=== PATIENT | female | born 1965 | race Caucasian/White ===

== ENCOUNTER 2017-07-23 10:29 | Day surgery (SDC) | payer OTHER ==
[~2017-07-23 10:29] MED LIST: Acetaminophen/HYDROcodone 325-5 MG Tab PO PRN; Clindamycin Phosphate in D5W 900 MG in Premix Bag 1 BAG IV ONE; Lactated Ringers 1,000 ML IV SCH; Lidocaine 1% 20 ML MDV ONE
[2017-07-23] MEDS ORDERED: Lidocaine 2% 5 ML SDV ONE (12:18)
[2017-07-23] MEDS ORDERED: fentaNYL 100 MCG/2 ML SDV ONE ×2 (12:18→12:47)
[2017-07-23] MEDS ORDERED: Propofol 200 MG/20 ML SDV ONE (12:18)
[2017-07-23] MEDS ORDERED: Midazolam 1 MG/ML 2 ML SDV ONE (12:19)
--- NOTE | 2017-07-23 12:52 | PCM.PREANE ---
Preanesthetic Assessment - Procedure Proposed Procedure: Left Knee Arthroscopy with lateral menisectomy - Anesthesia/Transfusion/Family Hx Anesthesia History: Prior Anesthesia Without Reaction Other Type of Anesthesia Reaction Comment: DENIES PROBLEMS WITH ANESTHESIA Family History of Anesthesia Reaction: No Transfusion History: No Prior Transfusion(s) Intubation History: Unknown - Review of Systems General: Other (fibromyalgia with attendant discomforts) Pulmonary: Other (smoker) Cardiovascular: Other (hypercholesterolemic on meds) Gastrointestinal: Other (GERD) Neurological: Difficulty Walking (due to knee injury) Other: Reports: Thyroid Problems (hypothyroid-on meds), Sinus Problem (treated) , Depression (treated with Li and Paxil; none today), Anxiety - Physical Assessment NPO Status Date: 07/22/17 NPO Status Time: 23:00 O2 Sat by Pulse Oximetry: 96 Respiratory Rate: 16 Vital Signs: Last Vital Signs Temp 97.2 F 07/23/17 10:44 Pulse 84 07/23/17 10:44 Resp 16 07/23/17 10:44 BP 135/79 07/23/17 10:44 Pulse Ox 96 07/23/17 10:44 Height: 5 ft 5 in Weight: 218 lb ASA Class: 3 Mental Status: Alert & Oriented x3 Airway Class: Mallampati = 2 Dentition: Reports: Dentures (upper) Thyro-Mental Finger Breadths: 3 (short neck) Mouth Opening Finger Breadths: 3 ROM/Head Extension: Full Lungs: Normal Respiratory Effort, Wheezing (left side; did not clear with cough) Cardiovascular: Regular Rate, Regular Rhythm, No Murmurs - Allergies Allergies/Adverse Reactions: Allergies Allergy/AdvReac Type Severity Reaction Status Date / Time erythromycin base Allergy Unknown Swelling Verified 05/04/14 10:18 [Erythromycin Base] Penicillins Allergy Unknown unknown Verified 03/04/14 12:51 Sulfa (Sulfonamide Allergy Unknown THROAT Verified 05/04/14 10:18 Antibiotics) SWELLS - Blood Blood Available: No Product(s) Available: None - Anesthesia Plan Pre-Op Medication Ordered: None - Acknowledgements Anesthesia Type Planned: General Anesthesia (LMA vs OETT) Pt an Appropriate Candidate for the Planned Anesthesia: Yes Alternatives and Risks of Anesthesia Discussed w Pt/Guardian: Yes Pt/Guardian Understands and Agrees with Anesthesia Plan: Yes PreAnesthesia Questionnaire HEENT History: Reports: Other (See Below) Other HEENT History: wears glasses, top denture Cardiovascular History: Reports: High Cholesterol, Hypertension Respiratory History: Reports: Asthma, Other (See Below) Other Respiratory History: seasonal asthma Gastrointestinal History: Reports: GERD Genitourinary History: Reports: Other (See Below) Other Genitourinary History: polycystic kidneys AUDITOR History: Reports: Musculoskeletal History: Reports: Arthritis, Fibromyalgia Psychiatric History: Reports: Anxiety, Depression Endocrine/Metabolic History: Reports: Hypothyroidism, Obesity/BMI 30+ - Past Surgical History Head Surgeries/Procedures: Reports: None GI Surgical History: Reports: Appendectomy, Cholecystectomy Female Surgical History: Reports: Section, Hysterectomy Other Female Surgeries/Procedures: multiple laparoscopies - SUBSTANCE USE Smoking Status *Q: Current Every Day Smoker Tobacco Use Within Last Twelve Months: Cigarettes Recreational Drug Use History: No - HOME MEDS Home Medications: Home Meds Cholecalciferol (Vitamin D3) [Vitamin D3] 1,000 unit PO DAILY 05/04/14 [History] Levothyroxine 75 mcg PO DAILY 05/04/14 [History] Omeprazole 20 mg PO DAILY 05/04/14 [History] Acetaminophen with Codeine [Acetaminophen-Cod #3] 1 tab PO ASDIRECTED PRN [History] Albuterol [IMW: Albuterol HFA] 2 puff INH ASDIRECTED PRN 07/16/17 [History] Fluticasone Propionate [Flonase Allergy Relief] 1 spray NASBOTH ASDIRECTED 07/16 [History] Lisinopril 5 mg PO DAILY 07/16/17 [History] PARoxetine [Paxil] 20 mg PO DAILY 07/16/17 [History] Pravastatin Sodium [Pravastatin (Pravachol)] 40 mg PO DAILY 07/16/17 [History] buPROPion [Wellbutrin] 100 mg PO DAILY 07/16/17 [History] - CURRENT (IN HOUSE) MEDS Current Meds: Current Medications Hydrocodone Bitart/Acetaminophen ([place] 325-5 Mg) 1 - 2 tab PO Q4H PRN PRN Reason: Pain Lactated Ringer's (Ringers, Lactated) 1,000 mls @ 100 mls/hr IV ASDIRECTED SARAH Last Admin: 07/23/17 11:09 Dose: 100 mls/hr Discontinued Medications Fentanyl (Sublimaze) Confirm Administered Dose 200 mcg .ROUTE .STK-MED ONE Stop: 07/23/17 12:19 Clindamycin Phosphate 900 mg/ (Premix) 50 mls @ 100 mls/hr IV ONETIME ONE Stop: 07/23/17 06:29 Last Admin: 07/23/17 12:39 Dose: 100 mls/hr Lidocaine (Xylocaine-Mpf 2%) Confirm Administered Dose 10 ml .ROUTE .STK-MED ONE Stop: 07/23/17 12:19 Lidocaine HCl (Xylocaine 1%) Confirm Administered Dose 20 ml .ROUTE .STK-MED ONE Stop: 07/23/17 07:34 Midazolam HCl (Versed 1 Mg/Ml) Confirm Administered Dose 2 mg .ROUTE .STK-MED ONE Stop: 07/23/17 12:20 Propofol (Diprivan 20 Ml) Confirm Administered Dose 400 mg .ROUTE .STK-MED ONE Stop: 07/23/17 12:19
[2017-07-23] MEDS ORDERED: HYDROmorphone 2 MG/ML Syringe IVPUSH ONE (14:14)
[2017-07-23] MEDS ORDERED: fentaNYL 100 MCG/2 ML SDV IVPUSH PRN (14:14)
--- NOTE | 2017-07-23 14:19 | PCM.OPNOTE ---
- General Post-Op/Procedure Note Date of Surgery/Procedure: 07/23/17 Operative Procedure(s): L knee scope with PLM/PMM Post-Op Diagnosis: Left knee med/lat meniscus tear Anesthesia Technique: General ET Tube Primary Surgeon: Fara Riddle Web Applications Architect: Guzman Hoffman in mLs: 5 Condition: Good Free Text/Narrative:: tt=13 min #[id number]
--- NOTE | 2017-07-23 14:37 | PCM.POSTAN ---
POST ANESTHESIA ASSESSMENT - MENTAL STATUS Mental Status: Alert, Oriented - VITAL SIGNS Pulse Rate: 117 SaO2: 95 Resp Rate: 14 Blood Pressure: 122/83 - RESPIRATORY Respiratory Status: Respiratory Rate WNL, Airway Patent, O2 Saturation Stable - CARDIOVASCULAR CV Status: Pulse Rate WNL, Blood Pressure Stable - GASTROINTESTINAL GI Status: No Symptoms - PAIN Pain Score: 0 - POST OP HYDRATION Hydration Status: Adequate & Stable
--- NOTE | 2017-07-23 14:55 | PCM48HPAN ---
Post Anesthesia Note - EVALUATION WITHIN 48HRS OF ANESTHETIC Vital Signs in Normal Range: Yes Patient Participated in Evaluation: Yes Respiratory Function Stable: Yes Airway Patent: Yes Cardiovascular Function Stable: Yes Hydration Status Stable: Yes Pain Control Satisfactory: Yes Nausea and Vomiting Control Satisfactory: Yes Mental Status Recovered: Yes
[2017-07-23 15:12] VITALS: BP 124/70
--- NOTE | 2017-07-24 00:51 | OR ---
SURGEON: Fara Riddle MD DATE OF PROCEDURE: 07/23/2017 PREOPERATIVE DIAGNOSIS: Left knee lateral meniscus tear. POSTOPERATIVE DIAGNOSES: Left knee lateral meniscus tear and left knee medial meniscus tear. PROCEDURE: Left knee arthroscopy with partial medial and lateral meniscectomy. COMMUNICATION AND OUTREACH MANAGER: Guzman Hoffman PA-C. ANESTHESIA: General. ESTIMATED BLOOD LOSS: 5 mL. TOURNIQUET TIME: 13 minutes. COMPLICATIONS: None. DVT PROPHYLAXIS: Not indicated. IMPLANTS USED: None. BRIEF HISTORY: Pamela is a 52-year-old female, who has had complaint of progressive left knee pain. She had failed conservative treatment. She did have an MRI, which did show a tear of the lateral meniscus. Due to her lack of response to conservative treatment, I did recommend surgical intervention. The risks and goals of the procedure were discussed with the patient and were documented preoperatively. She agreed to proceed. NARRATIVE: The patient was properly identified and brought to the operating room. She was transferred from the OR cart and placed on the operating table in supine position. General anesthesia was administered. After adequate anesthesia was obtained, a well-padded tourniquet was applied to the left lower extremity. The left lower extremity was then prepped in standard fashion using ChloraPrep solution. It was then sterilely draped. A time-out was performed to ensure correct site and procedure. The surgical site had been marked preoperatively. An Esmarch was used to exsanguinate the left lower extremity and the tourniquet was inflated to 250 mmHg. A lateral portal arthrotomy was established. Blunt trocar and cannula were introduced into the suprapatellar space. Camera, inflow, and outflow were assembled. No significant synovitis was noted. The patellofemoral joint was visualized. There was minor degenerative changes consistent with diffuse grade 2 chondromalacia. The patella appeared to track centrally. I then extended down the lateral and medial gutter. No loose bodies were identified. I then entered the medial compartment. A medial portal arthrotomy was established. A blunt probe was inserted. The meniscus was probed. She was found to have a full-thickness radial tear of the posterior horn. Using a combination of biters and shaver, this was resected back to a stable remnant. The remainder was probed and was found to be stable. The joint surfaces showed diffuse grade 2 to grade 3 chondromalacia. I then entered the notch. Both the ACL and PCL were visualized and probed and found to be intact. I then entered the lateral compartment. She was found to have a radial tear along the posterior horn of the lateral meniscus. This was again treated with a combination of biters and shaver. It was resected back to a stable remnant. It was probed and found to be stable. Diffuse grade 3 chondromalacia was noted along the lateral tibial plateau. The lateral femoral condyle did not show any significant degenerative findings. The instruments were then removed from the knee. The portal sites were closed with 3-0 nylon. Lidocaine 1% was injected along the portal tracts. Xeroform gauze was placed over the wound and a bulky dressing was applied. The tourniquet was then deflated. She was awakened from her anesthetic and transferred back to the operating room cart. She was brought to recovery room in stable condition. All needle and sponge counts were correct. ROBERT / KEYLA /[id number]
== END 2017-07-23 15:25 | disposition home or self-care (01) ==
LOC: MW.SDS 10:29
PROVIDERS: ATTEND Orthopaedic Surgery
DX: S83.242A Other tear of medial meniscus, current injury, left knee, initial encounter (principal); S83.282A Other tear of lateral meniscus, current injury, left knee, initial encounter; M65.862 Other synovitis and tenosynovitis, left lower leg; M94.262 Chondromalacia, left knee; F17.210 Nicotine dependence, cigarettes, uncomplicated; F41.9 Anxiety disorder, unspecified; F32.9 Major depressive disorder, single episode, unspecified; K21.9 Gastro-esophageal reflux disease without esophagitis; E78.00 Pure hypercholesterolemia, unspecified; E03.9 Hypothyroidism, unspecified; Q61.3 Polycystic kidney, unspecified; J45.909 Unspecified asthma, uncomplicated; M79.7 Fibromyalgia; M19.90 Unspecified osteoarthritis, unspecified site; E66.9 Obesity, unspecified; Z79.51 Long term (current) use of inhaled steroids; Z79.899 Other long term (current) drug therapy; Z88.0 Allergy status to penicillin; Z88.1 Allergy status to other antibiotic agents; Z88.2 Allergy status to sulfonamides; Z68.36 Body mass index [BMI] 36.0-36.9, adult; Z90.49 Acquired absence of other specified parts of digestive tract; Z90.710 Acquired absence of both cervix and uterus; Z98.890 Other specified postprocedural states
CPT/HCPCS: 29880; J2250; J3010; J7120; 01400; 88304; J2704

== ENCOUNTER 2019-09-30 11:06 | Day surgery (SDC) | payer OTHER ==
[~2019-09-30 11:06] MED LIST changes: -Acetaminophen/HYDROcodone 325-5 MG Tab PO PRN; +Betamethasone Acetate/Betamethasone Sod Phosphate 30 MG/5 ML MDV EPIDUR ONE; -Clindamycin Phosphate in D5W 900 MG in Premix Bag 1 BAG IV ONE; +Iopamidol 200-M 10 ML vial ITHECAL ONE; -Lactated Ringers 1,000 ML IV SCH; -Lidocaine 1% 20 ML MDV ONE; +Lidocaine 2% 5 ML SDV INJECT ONE; +Ropivacaine 0.5% 5 MG/ML 30 ML SDV INJECT ONE
--- NOTE | 2019-09-30 19:01 | OR ---
SURGEON: Marina Greenberg D.O. DATE OF PROCEDURE: 09/30/2019 PRIMARY SURGEON: Marina Greenberg D.O. HIDE MILL MAN: OR staff present: 1. Leon Smith RT. 2. Farida Galvan RN. 3. Philipp Apodaca RN. WOUND CLASS: I. PREOPERATIVE DIAGNOSES: 1. Left lumbar spondylosis, L3-4, L4-5, and L5-S1. 2. Lumbar facet syndrome. POSTOPERATIVE DIAGNOSES: 1. Left lumbar spondylosis, L3-4, L4-5, and L5-S1. 2. Lumbar facet syndrome. PROCEDURES PERFORMED: 1. Left L3-4 facet joint injection. 2. Left L4-5 facet joint injection. 3. Left L5-S1 facet joint injection. 4. Fluoroscopic guidance for needle placement. 5. Local with oral Valium for sedation. PREOPERATIVE PAIN: 6/10 to 10/10. POSTOPERATIVE PAIN: 0/10. FOLLOWUP: Followup in the Pain Clinic with pain diary in 3 weeks. SCREENING QUESTIONS: The patient answered "No" to all the following questions: 1. Are you allergic to iodine, Betadine or latex? 2. Do you have a bleeding disorder? 3. Are you on anti-inflammatories or blood thinners? 4. Do you have any current local or systemic infections? DESCRIPTION OF PROCEDURE: The patient had the procedure thoroughly explained including risks, benefits and alternatives. Consent was signed in my clinic indicating understanding and willingness to proceed. The patient presented to [facility] and was escorted to the dressing room to disrobe and change into a hospital gown. Preoperative history and screening were performed by my nurse. Vital signs were taken and stable. The patient reported that Valium 10 milligrams was taken prior to the procedure. The patient was brought back to the procedure room and placed in the prone position on the procedure room table. A pillow was placed under the abdomen in order to flatten the lumbar lordosis. The back was prepped with ChloraPrep and sterilely draped. All personnel in the procedure room were dressed in appropriate attire including surgical scrubs, head and shoe covers. This was to ensure sterility while in the treatment room. During the time fluoroscopy was in use all personnel in the operating room wore lead prado with thyroid collars. Sterile technique was used during the procedure. Then attention was turned to the left side. The fluoroscope was positioned to provide a left oblique view for the left L3-4 facet block. This was begun by anesthetizing the skin and soft tissues. Then a 22-gauge 3.5 inch needle was positioned at the junction of the transverse process and the superior articular process at the left L4 vertebral body. Precise needle placement was confirmed by fluoroscopy with 0.2 cubic centimeters of IsoVue-200 contrast dye injected through microbore tubing under live fluoroscopy showing no intravascular flow pattern and adequate flow over the target L3-4 on the left. After negative aspiration,celestone and 1 cubic centimeters of 0.5% Ropivacaine was injected without complications. The fluoroscope was positioned then to provide a left L4-5 facet injection. The skin was anesthetized. Then a 22-gauge 3.5 inch spinal needle was positioned at the junction of the transverse process in the superior articular process of the L5 vertebral body on the left. Precise needle placement was confirmed by fluoroscopy and with 0.2 cubic centimeters of IsoVue-200 contrast dye injected through microbore tubing showing no intravascular flow pattern and adequate flow over the target. Then 1 cubic centimeters of celestone and 0.5% Ropivacaine was injected after negative aspiration without complications. Then the fluoroscope was positioned for the left L5-S1 facet block. This was begun by anesthetizing the skin and soft tissues. Then with fluoroscopic guidance a sterile 22-gauge 3.5 inch spinal needle was positioned at the left sacral ala. Precise needle placement was confirmed with 0.2 cubic centimeters of IsoVue-200 contrast dye injected through microbore tubing under live fluoroscopy showing no intravascular flow pattern and adequate flow over the target and then 1.0cc mixture of celestone and local was injected without complications The procedure was well tolerated and vital signs were stable during and after the procedure. The staff escorted the patient to the recovery area. The patient was given both oral and written discharge and followup instructions. The patient will follow up with a pain diary which will be evaluated over this evening doing things that would normally cause pain. We will evaluate the efficacy of the diagnostic lumbar medial branch blocks as the patient will follow up in the clinic the next day. The patient was given both oral and written discharge and followup instructions. The patient voiced understanding including understanding of those signs and symptoms that would require emergency care and knows how to contact the office if there are any questions or concerns in the meantime. BLANCA / KEYLA /[id number] MTDDanyelle
== END 2019-09-30 13:32 | disposition home or self-care (01) ==
LOC: MW.SDS 11:06
PROVIDERS: ATTEND Anesthesiology
DX: G89.29 Other chronic pain (principal); M47.816 Spondylosis without myelopathy or radiculopathy, lumbar region; M47.817 Spondylosis without myelopathy or radiculopathy, lumbosacral region; M51.36 Other intervertebral disc degeneration, lumbar region; M79.18 Myalgia, other site; E78.00 Pure hypercholesterolemia, unspecified; E03.9 Hypothyroidism, unspecified; K21.9 Gastro-esophageal reflux disease without esophagitis; F41.9 Anxiety disorder, unspecified; F32.9 Major depressive disorder, single episode, unspecified; F17.210 Nicotine dependence, cigarettes, uncomplicated; Q44.6 Cystic disease of liver; Z88.1 Allergy status to other antibiotic agents; Z88.0 Allergy status to penicillin; Z88.2 Allergy status to sulfonamides; Z79.82 Long term (current) use of aspirin; Z79.51 Long term (current) use of inhaled steroids; Z79.899 Other long term (current) drug therapy
CPT/HCPCS: 64493; 64494; 64495; J0702

== ENCOUNTER 2020-01-20 10:41 | Day surgery (SDC) | payer OTHER ==
[2020-01-20] MEDS ORDERED: Betamethasone Acetate/Betamethasone Sod Phosphate 30 MG/5 ML MDV EPIDUR ONE (12:30)
[2020-01-20] MEDS ORDERED: Iopamidol 200-M 10 ML vial ITHECAL ONE (12:30)
[2020-01-20] MEDS ORDERED: Lidocaine 2% 5 ML SDV INJECT ONE (12:30)
[2020-01-20] MEDS ORDERED: Ropivacaine 0.5% 5 MG/ML 30 ML SDV INJECT ONE (12:30)
--- NOTE | 2020-01-20 20:04 | OR ---
SURGEON: Marina Greenberg D.O. DATE OF PROCEDURE: 01/20/2020 PREOPERATIVE DIAGNOSIS: Lumbar facet arthropathy. Chronic low back pain Lumbar facet syndrome. POSTOPERATIVE DIAGNOSIS: same PROCEDURES PERFORMED: 1. Right L3-4 facet joint injection. 2. Right L4-5 facet joint injection. 3. Right L5-S1 facet joint injection. 4. Left L3-4 facet joint injection. 5. Left L4-5 facet joint injection. 6. Left L5-S1 facet joint injection. 7. Fluoroscopic guidance for needle placement. 8. Local with oral Valium for sedation. SCREENING QUESTIONS: The patient answered "No" to all the following questions: 1. Are you allergic to iodine, Betadine or latex? 2. Do you have a bleeding disorder? 3. Are you on anti-inflammatories or blood thinners? 4. Do you have any current local or systemic infections? DESCRIPTION OF PROCEDURE: The patient had the procedure thoroughly explained including risks, benefits and alternatives. Consent was signed in my clinic indicating understanding and willingness to proceed. The patient presented to [facility] and was escorted to the dressing room to disrobe and change into a hospital gown. Preoperative history and screening were performed by my nurse. Vital signs were taken and stable. The patient reported that Valium 10 milligrams was taken prior to the procedure. The patient was brought back to the procedure room and placed in the prone position on the procedure room table. A pillow was placed under the abdomen in order to flatten the lumbar lordosis. The back was prepped with ChloraPrep and sterilely draped. All personnel in the procedure room were dressed in appropriate attire including surgical scrubs, head and shoe covers. This was to ensure sterility while in the treatment room. During the time fluoroscopy was in use all personnel in the operating room wore lead prado with thyroid collars. Sterile technique was used during the procedure. The fluoroscope was positioned to provide a right oblique view. Then the right L3-4 facet injection was begun by anesthetizing the skin and soft tissues with 2 cubic centimeters of 2% Preservative-Free Lidocaine with a 25-gauge 1.5 inch needle. There were no signs of infection at the site of needle skin insertions. Using fluoroscopic guidance a sterile 22-gauge 3.5 inch spinal needle was positioned at the "ear of the amie dog" of the facet joint. Precise needle placement was confirmed by fluoroscopy and 0.2 cubic centimeters of IsoVue-200 contrast dye which was injected through microbore tubing under live fluoroscopy and showed no intravascular flow pattern and adequate flow over the target facet joint. Then 1.0 cubic centimeters of celestone and 0.5% Ropivacaine Preservative-Free was injected slowly without complications after negative aspiration. This was repeated on the left as above. Then the fluoroscope was positioned to provide a right oblique view for the right L4-5 facet joint injection. This was begun by anesthetizing the skin and soft tissues. The fluoroscope was positioned and a sterile 22-gauge 3.5 inch needle was placed at the junction of the " ear of the amie dog". Precise needle placement was confirmed by fluoroscopy. Then 0.2 cubic centimeters of IsoVue-200 contrast dye was injected through microbore tubing under live fluoroscopy and showed no intravascular flow pattern and adequate flow over the target facet joint. After negative aspiration, 1.,0 cubic centimeters of celestone and 0.5% Ropivacaine was injected without complications.This was repeated on the left as above. The fluoroscope was then positioned to provide a right L5-S1 facet injection. . This was begun by anesthetizing the skin and soft tissues. Then using fluoroscopic guidance, a sterile 22-gauge 3.5 inch spinal needle was positioned at the " ear of the amie dog . Precise needle placement was confirmed by fluoroscopy in AP and oblique views, and 0.2 cubic centimeters of IsoVue-200 contrast dye was injected through microbore tubing under live fluoroscopy and showed no intravascular flow pattern and adequate flow over the target. After negative aspiration, 1.0 cubic centimeters of celestone and 0.5% Ropivacaine was injected. No complications were noted. The procedure was repeated for the left L5-S1 facet joint as above. The procedures were well tolerated and vital signs were stable during and after the procedures. The staff escorted the patient to the recovery area. The patient was given both oral and written discharge and followup instructions. The patient will follow up with a pain diary which will be evaluated over this evening doing things that would normally cause pain. We will evaluate the efficacy of the diagnostic lumbar medial branch blocks as the patient will follow up in the clinic the next day. The patient was given both oral and written discharge and followup instructions. The patient voiced understanding including understanding of those signs and symptoms that would require emergency care and knows how to contact the office if there are any questions or concerns in the meantime. PREOPERATIVE PAIN: 7/10. POSTOPERATIVE PAIN: 0/10. FOLLOWUP: Follow up in the Pain Clinic in 3 weeks. HOGRASHAAD / KEYLA /[id number] CASEY
== END 2020-01-20 14:02 | disposition home or self-care (01) ==
LOC: MW.SDS 10:41
PROVIDERS: ATTEND Anesthesiology
DX: G89.29 Other chronic pain (principal); M47.816 Spondylosis without myelopathy or radiculopathy, lumbar region; M47.817 Spondylosis without myelopathy or radiculopathy, lumbosacral region; M51.36 Other intervertebral disc degeneration, lumbar region; M51.37 Other intervertebral disc degeneration, lumbosacral region; M79.18 Myalgia, other site; F41.9 Anxiety disorder, unspecified; K21.9 Gastro-esophageal reflux disease without esophagitis; E78.00 Pure hypercholesterolemia, unspecified; E03.9 Hypothyroidism, unspecified; F17.210 Nicotine dependence, cigarettes, uncomplicated; Z88.0 Allergy status to penicillin; Z88.2 Allergy status to sulfonamides; Z88.1 Allergy status to other antibiotic agents; Z79.82 Long term (current) use of aspirin; Z79.899 Other long term (current) drug therapy; Z79.51 Long term (current) use of inhaled steroids
CPT/HCPCS: 64493; 64494; 64495; J0702

== ENCOUNTER 2020-05-06 07:45 | Day surgery (SDC) | payer OTHER ==
[~2020-05-06 07:45] MED LIST changes: -Betamethasone Acetate/Betamethasone Sod Phosphate 30 MG/5 ML MDV EPIDUR ONE; -Iopamidol 200-M 10 ML vial ITHECAL ONE; +Lactated Ringers 1,000 ML IV SCH; -Lidocaine 2% 5 ML SDV INJECT ONE; -Ropivacaine 0.5% 5 MG/ML 30 ML SDV INJECT ONE; +Sodium Chloride 0.9% 10 ML SDV IV PRN; +Sodium Chloride 0.9% 10 ML Syringe FLUSH PRN; +Sodium Chloride 0.9% 2.5 ML Syringe FLUSH PRN
[2020-05-06] MEDS ORDERED: Propofol 200 MG/20 ML SDV ONE ×4 (08:40→10:11)
[2020-05-06] MEDS ORDERED: Midazolam 1 MG/ML 2 ML SDV ONE (08:41)
--- NOTE | 2020-05-06 08:41 | PCM.PREANE ---
Preanesthetic Assessment - Anesthesia/Transfusion/Family Hx Anesthesia History: Prior Anesthesia Without Reaction Other Type of Anesthesia Reaction Comment: DENIES PROBLEMS WITH ANESTHESIA Family History of Anesthesia Reaction: No Transfusion History: No Prior Transfusion(s) Intubation History: Unknown - Review of Systems General: No Symptoms Pulmonary: No Symptoms Cardiovascular: No Symptoms Gastrointestinal: No Symptoms Neurological: No Symptoms - Physical Assessment NPO Status Date: 05/05/20 NPO Status Time: 23:00 Vital Signs: Last Vital Signs Temp 97.2 F 05/06/20 08:00 Pulse 94 05/06/20 08:00 Resp 16 05/06/20 08:00 BP 131/67 05/06/20 08:00 Pulse Ox 94 L 05/06/20 08:00 Height: 5 ft 4 in Weight: 106.594 kg ASA Class: 2 Mental Status: Alert & Oriented x3 Airway Class: Mallampati = 2 Dentition: Reports: Normal Dentition ROM/Head Extension: Full Lungs: Clear to Auscultation, Normal Respiratory Effort Cardiovascular: Regular Rate, Regular Rhythm - Allergies Allergies/Adverse Reactions: Allergies Allergy/AdvReac Type Severity Reaction Status Date / Time erythromycin base Allergy Unknown Swelling Verified 04/30/20 10:11 [Erythromycin Base] Penicillins Allergy Unknown Cannot Verified 04/30/20 10:11 Remember Sulfa (Sulfonamide Allergy Unknown THROAT Verified 04/30/20 10:11 Antibiotics) SWELLS azithromycin Allergy Cannot Verified 04/30/20 10:11 Remember - Blood Blood Available: No - Anesthesia Plan Pre-Op Medication Ordered: None - Acknowledgements Anesthesia Type Planned: General Anesthesia (tiva) Pt an Appropriate Candidate for the Planned Anesthesia: Yes Alternatives and Risks of Anesthesia Discussed w Pt/Guardian: Yes Pt/Guardian Understands and Agrees with Anesthesia Plan: Yes Additional Comments: PMH: anx/dep, gerd, polycystic kidney disease with preserved renal function, thyroid replacement, smoker, metformin for pre-diabetes. 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: Musculoskeletal History: Reports: Arthritis, Fibromyalgia Other Musculoskeletal History: DDD Neurological History: Reports: None Psychiatric History: Reports: Anxiety, Depression Endocrine/Metabolic History: Reports: Hypothyroidism, Obesity/BMI 30+ Other Endocrine/Metabolic History: "prediabetic" Hematologic History: Reports: None Immunologic History: Reports: None Oncologic (Cancer) History: Reports: None Dermatologic History: Reports: None - Past Surgical History Female Surgical History: Reports: Section, Hysterectomy - SUBSTANCE USE Smoking Status *Q: Current Every Day Smoker Tobacco Use Within Last Twelve Months: Cigarettes Days Per Week of Alcohol Use: 1 Recreational Drug Use History: No - HOME MEDS Home Medications: Home Meds Cholecalciferol (Vitamin D3) [Vitamin D3] 1,000 unit PO DAILY 05/04/14 [History] Levothyroxine 75 mcg PO DAILY 05/04/14 [History] Albuterol [IMW: Albuterol HFA] 2 puff INH ASDIRECTED PRN 07/16/17 [History] Fluticasone Propionate [Flonase Allergy Relief] 1 spray NASBOTH DAILY 07/16/17 [ History] Lisinopril 10 mg PO DAILY 07/16/17 [History] PARoxetine [Paxil] 40 mg PO DAILY 07/16/17 [History] Pravastatin Sodium [Pravastatin (Pravachol)] 40 mg PO DAILY 07/16/17 [History] buPROPion [Wellbutrin] 100 mg PO DAILY 07/16/17 [History] Aspirin [Burns Aspirin EC] 81 mg PO DAILY 04/30/20 [History] Magnesium 250 mg PO DAILY 04/30/20 [History] Pantoprazole Sodium [Protonix] 40 mg PO DAILY 04/30/20 [History] chlordiazePOXIDE HCl [Chlordiazepoxide HCl] 10 mg PO DAILY 04/30/20 [History] metFORMIN [Glucophage] 500 mg PO DAILY 04/30/20 [History] methocarbamoL [Methocarbamol] 750 mg PO TID PRN 04/30/20 [History] traZODone HCl [Trazodone HCl] 100 mg PO BEDTIME 04/30/20 [History] - CURRENT (IN HOUSE) MEDS Current Meds: Current Medications Lactated Ringer's (Ringers, Lactated) 1,000 mls @ 125 mls/hr IV ASDIRECTED SARAH Last Admin: 05/06/20 08:29 Dose: 125 mls/hr Sodium Chloride (Saline Flush) 10 ml FLUSH ASDIRECTED PRN PRN Reason: Keep Vein Open Sodium Chloride (Saline Flush) 2.5 ml FLUSH ASDIRECTED PRN PRN Reason: Keep Vein Open Sodium Chloride (Saline Flush) 10 ml FLUSH ASDIRECTED PRN PRN Reason: Keep Vein Open Sodium Chloride (Saline Flush) 2.5 ml FLUSH ASDIRECTED PRN PRN Reason: Keep Vein Open Sodium Chloride (Normal Saline) 10 ml IV ASDIRECTED PRN PRN Reason: IV Use
[2020-05-06] MEDS ORDERED: Lidocaine 2% 5 ML SDV ONE (09:17)
[2020-05-06] MEDS ORDERED: cefOXitin 1 GM Vial ONE (10:26)
--- NOTE | 2020-05-06 11:41 | PCM48HPAN ---
Post Anesthesia Note - EVALUATION WITHIN 48HRS OF ANESTHETIC Vital Signs in Normal Range: Yes Patient Participated in Evaluation: Yes Respiratory Function Stable: Yes Airway Patent: Yes Cardiovascular Function Stable: Yes Hydration Status Stable: Yes Pain Control Satisfactory: Yes Nausea and Vomiting Control Satisfactory: Yes Mental Status Recovered: Yes Vital Signs: Last Vital Signs Temp 97.7 F 05/06/20 10:55 Pulse 87 05/06/20 10:55 Resp 16 05/06/20 10:55 BP 99/51 L 05/06/20 10:55 Pulse Ox 96 05/06/20 10:55
--- NOTE | 2020-05-06 11:41 | PCM.POSTAN ---
POST ANESTHESIA ASSESSMENT - MENTAL STATUS Mental Status: Alert, Oriented - VITAL SIGNS Vital Signs: Last Vital Signs Temp 97.7 F 05/06/20 10:55 Pulse 87 05/06/20 10:55 Resp 16 05/06/20 10:55 BP 99/51 L 05/06/20 10:55 Pulse Ox 96 05/06/20 10:55 - RESPIRATORY Respiratory Status: Respiratory Rate WNL, Airway Patent, O2 Saturation Stable - CARDIOVASCULAR CV Status: Pulse Rate WNL, Blood Pressure Stable - GASTROINTESTINAL GI Status: No Symptoms - POST OP HYDRATION Hydration Status: Adequate & Stable
--- NOTE | 2020-05-06 12:32 | PCM.OPNOTE ---
- General Post-Op/Procedure Note Date of Surgery/Procedure: 05/06/20 Operative Procedure(s): Diagnostic colonoscopy Findings: Large sigmoid colon polyp on a stalk, ascending and transverse colon polyps, diverticulosis of sigmoid colon Pre Op Diagnosis: History of diverticulitis Post-Op Diagnosis: Sigmoid colon polyp, ascending colon polyp, transverse colon polyp, diverticulosis Anesthesia Technique: [facility] [place] Primary Surgeon: Kayley Schilling Condition: Good Free Text/Narrative:: Intake & Output 05/05/20 05/06/20 05/06/20 22:59 06:59 14:59 Intake Total 1100 Balance 1100
[2020-05-06 12:45] VITALS: BP 104/60; PULSE 84
--- NOTE | 2020-05-06 16:21 | OR ---
SURGEON: KAYLEY SCHILLING MD DATE OF PROCEDURE: 05/06/2020 PREOPERATIVE DIAGNOSIS: History of diverticulitis. POSTOPERATIVE DIAGNOSES: 1. Diverticulosis. 2. Transverse colon polyp. 3. Ascending colon polyp. 4. Large sigmoid colon polyp. PROCEDURE PERFORMED: Diagnostic colonoscopy with polypectomy. PRIMARY SURGEON: Kayley Schilling MD ANESTHESIA: MAC. INSTRUMENT USED: Olympus colonoscope. EXTENT OF EXAM: To the cecum. PREPARATION: Good. LIMITATIONS: None. INDICATIONS FOR EXAMINATION: The patient is a 54-year-old female who 2 months ago was diagnosed with and treated for diverticulitis. She now presents for a followup colonoscopy. I explained the procedure, expected perioperative course, and risks. She verbalized understanding and wishes to proceed. PROCEDURE IN DETAIL: The patient was brought into the endoscopy suite and placed in the left lateral decubitus position. A time-out was completed verifying the patient's name, age, date of , allergies, and procedure to be performed. Monitored anesthesia care was induced and continuous oxygen was provided via nasal cannula throughout the procedure. After adequate sedation was achieved, a digital rectal exam was performed. This exam was within normal limits. A well-lubricated colonoscope was inserted in the rectum and advanced under direct visualization to the level of the cecum. In the distal sigmoid colon, the patient's tissue was very tortuous and somewhat fixed. I actually removed the scope I was using and brought in a smaller scope. Once I did this, I was able to transverse through the sigmoid colon safely. I was eventually able to get to the cecal cap. A photograph of this was taken. I was unable to retroflex the scope within the cecum because due to the fixed nature of the sigmoid colon more proximally the scope would not turn around upon itself. The scope was fully withdrawn while examining the color, texture, anatomy, and integrity of the mucosa from the cecum to the anal canal. The patient was found to have a sessile polyp within the ascending colon. This was removed in piecemeal fashion using cold biopsy forceps. In the distal transverse colon, the patient had a very small sessile polyp. This was removed in similar fashion. At 20 cm within the sigmoid colon, the patient was noted to have a few scattered diverticula, but also at this level, the patient had a large pedunculated polyp that was on a stalk. A looped wire was brought in to snare the polyp along the midportion of the stalk. Cautery was carefully used to transect through this stalk. Suction then was used to grasp the polyp. It was sent to pathology, labeled as sigmoid colon polyp. I reinserted my scope to the level of the polypectomy. I carefully inspected my site and it appeared to be hemostatic. I then injected submucosal ink in the area for identification in the future. The remainder of the colon appeared normal. The scope was brought into the rectum and retroflexed to allow visualization of the anal canal opening. This appeared normal and a photograph was taken. The scope was then fully withdrawn. The cecum to anus time was 30 minutes. The patient tolerated the procedure well and was transferred to the PACU in stable condition. ENDOSCOPIC DIAGNOSES: 1. Diverticulosis. 2. Transverse colon polyp. 3. Ascending colon polyp. 4. Large sigmoid colon polyp. RECOMMENDATIONS: Follow up in clinic in 2 weeks. LATONIA RAMIRES /[id number]
== END 2020-05-06 11:45 | disposition home or self-care (01) ==
LOC: MW.SDS 07:45
PROVIDERS: ATTEND Surgery
DX: D12.2 Benign neoplasm of ascending colon (principal); D12.3 Benign neoplasm of transverse colon; D12.5 Benign neoplasm of sigmoid colon; K57.30 Diverticulosis of large intestine without perforation or abscess without bleeding; F41.9 Anxiety disorder, unspecified; E78.00 Pure hypercholesterolemia, unspecified; K21.9 Gastro-esophageal reflux disease without esophagitis; F32.9 Major depressive disorder, single episode, unspecified; E03.9 Hypothyroidism, unspecified; F17.210 Nicotine dependence, cigarettes, uncomplicated; I10 Essential (primary) hypertension; J45.909 Unspecified asthma, uncomplicated; Z88.1 Allergy status to other antibiotic agents; Z88.0 Allergy status to penicillin; Z88.2 Allergy status to sulfonamides; Z79.82 Long term (current) use of aspirin; Z79.890 Hormone replacement therapy; Z79.899 Other long term (current) drug therapy; Z87.19 Personal history of other diseases of the digestive system
CPT/HCPCS: 45380; 45381; 45385; 88305; J0694; J2001; J2250; J2704; J7120; 00811